=== PATIENT | male | born 1970 | race Caucasian/White ===

== ENCOUNTER → 2018-08-01 | Outpatient (CLI) | payer OTHER ==
--- NOTE | 2018-08-01 17:50 | Diagnostic Imaging Report ---
TECHNIQUE: Magnetic resonance imaging of the LEFT KNEE was performed WITHOUT injected contrast. HISTORY: INTRA- ARTICULAR ABNORMALITIES , acute pain, fall July 19, 2018 COMPARISON: None available. FINDINGS: LIGAMENTS AND TENDONS: ACL: Intact PCL: Intact Collateral ligaments: Intact Iliotibial band: Unremarkable Popliteal tendon: Intact Extensor mechanism: Intact JOINT: Menisci: Medial: Intact Lateral: Intact Articular Cartilage: Medial Compartment: No focal defect. Lateral Compartment: No focal defect. Patellofemoral Compartment: No focal defect. Joint Fluid: The amount of fluid within the joint is within physiologic limits. BONES: No focal or infiltrative bone marrow replacing abnormality. No acute fracture. SOFT TISSUES: Otherwise, unremarkable. IMPRESSION: 1. No acute MRI abnormality. 2. Specifically, no fracture, ligamentous tear, meniscal tear, or focal cartilage injury. Signed by: Dr. Claude Elias D.O., M.M.M. on 08/01/2018 5:47 PM
--- NOTE | 2018-08-01 17:53 | Diagnostic Imaging Report ---
TECHNIQUE: Magnetic resonance imaging of the RIGHT KNEE was performed WITHOUT injected contrast. HISTORY: INTRA- ARTICULAR ABNORMALITIES, acute pain, fall July 19, 2018 COMPARISON: None available. FINDINGS: LIGAMENTS AND TENDONS: ACL: Intact PCL: Intact Collateral ligaments: Intact Iliotibial band: Unremarkable Popliteal tendon: Intact Extensor mechanism: Intact JOINT: Menisci: Medial: Intact Lateral: Intact Articular Cartilage: Medial Compartment: No focal defect. Lateral Compartment: No focal defect. Patellofemoral Compartment: No focal defect. Joint Fluid: The amount of fluid within the joint is within physiologic limits. BONES: No focal or infiltrative bone marrow replacing abnormality. No acute fracture. SOFT TISSUES: Otherwise, unremarkable. IMPRESSION: 1. No acute MRI abnormality. 2. Specifically, no fracture, ligamentous tear, meniscal tear, or focal cartilage injury. Signed by: Dr. Claude Elias D.O., M.M.M. on 08/01/2018 5:50 PM
== END ==
LOC: MRI 13:45
PROVIDERS: ATTEND Family Medicine
DX: M25.561 Pain in right knee (principal); S80.01XD Contusion of right knee, subsequent encounter